=== PATIENT | male | born 1945 | race Caucasian/White ===

== ENCOUNTER 2021-05-20 16:14 | Emergency (ER) | payer OTHER ==
[~2021-05-20] VITALS: Ht 172.7 cm; Wt 81.7 kg
[2021-05-20 17:16] LABS: BASOPHILS ABSOLUTE AUTO 0.09 K/mm3 (0.00-0.23); BASOPHILS PERCENT AUTO 1 % (0-2); EOSINOPHILS ABSOLUTE AUTO 0.11 K/mm3 (0.00-0.68); EOSINOPHILS PERCENT AUTO 1 % (0-6); Hematocrit 38.3 % (37.0-53.0); Hemoglobin 13.1 g/dL (13.5-17.5); IMMATURE GRAN ABSOLUTE AUTO 0.03 K/mm3 (0.00-0.10); IMMATURE GRAN PERCENT AUTO 0 % (0-1); LYMPHOCYTES ABSOLUTE AUTO 1.28 K/mm3 (0.84-5.20); LYMPHOCYTES PERCENT AUTO 12 % (21-46); MONOCYTES ABSOLUTE AUTO 1.24 K/mm3 (0.16-1.47); MONOCYTES PERCENT AUTO 12 % (4-13); Mean Corpuscular HGB 31.6 pg (26.0-34.0); Mean Corpuscular HGB Conc 34.2 g/dL (31.5-36.5); Mean Corpuscular Volume 93 fL (80-100); Mean Platelet Volume 10.6 fL (9.1-12.4); NEUTROPHILS ABSOLUTE AUTO 7.58 K/mm3 (1.96-9.15); NEUTROPHILS PERCENT AUTO 73 % (41-73); Platelet Count 259 K/mm3 (150-400); RDW Coefficient Variation 13.7 % (11.7-14.2); Red Blood Cell Count 4.14 M/mm3 (4.30-5.90); White Blood Cell Count 10.33 K/mm3 (4.00-11.30)
[2021-05-20 17:37] LABS: Alanine Aminotransfer (ALT/SGP 24 U/L (12-78); Albumin, Blood 3.5 g/dL (3.4-5.0); Alk Phos 87 U/L (50-136); Anion Gap 6 mmol/L (6-16); Aspartate Aminotrans (AST/SGOT 15 U/L (12-37); Blood Urea Nitrogen 9 mg/dL (8-24); Bun/Creatinine Ratio 10.9 (12.0-20.0); CO2, Blood 26 mmol/L (21-32); Calcium, Blood 8.3 mg/dL (8.5-10.1); Chloride, Blood 105 mmol/L (98-108); Creatinine, Blood 0.83 mg/dL (0.60-1.20); Globulin, Blood 3.6 g/dL (2.2-4.0); Glomerular Filtration Rate >60 (60-); Glucose, Blood 94 mg/dL (70-99); Potassium, Blood 3.4 mmol/L (3.5-5.5); Sodium, Blood 137 mmol/L (136-145); Total Protein, Blood 7.1 g/dL (6.4-8.2); Troponin I <0.015 ng/mL (0.000-0.040)
[2021-05-20] MEDS ORDERED: Robaxin750 MG PO ×2 (19:24→19:48)
[2021-05-20] MEDS ORDERED: IBUP600 PO ×2 (19:24→19:48)
[2021-05-20] MEDS ORDERED: AMLOATOR (19:26)
[2021-05-20] MEDS ORDERED: Amlodipine Bes2.5 MG (19:27)
[2021-05-20] MEDS ORDERED: ATOR10 (19:27)
[2021-05-20] MEDS ORDERED: Lisinopril2.5 MG (19:27)
[2021-05-20] MEDS ORDERED: CLOP75 PO (19:28)
[2021-05-20] MEDS ORDERED: Flomax0.4 MG (19:29)
== END 2021-05-20 20:16 | disposition home or self-care (01) ==
LOC: ER 16:14
PROVIDERS: Physician Assistant
DX: M54.2 Cervicalgia (principal); M25.511 Pain in right shoulder; M25.512 Pain in left shoulder; Z88.1 Allergy status to other antibiotic agents; Z87.891 Personal history of nicotine dependence; Z79.899 Other long term (current) drug therapy
CPT/HCPCS: 70498; 71046; 80053; 84484; 85025; 93005; 93010; 96374-59; 96375-59; 99284-25; A9270; J1170; J1885; Q9967

== ENCOUNTER 2024-01-21 11:36 | Emergency (ER) | payer OTHER ==
[~2024-01-21] VITALS: Ht 172.7 cm; Wt 77.1 kg
[~2024-01-21 11:36] MED LIST: ALBU90OI INH; AMLO10 PO; AMLOATOR; ATOR10; ATOR20 PO; Amlodipine Bes2.5 MG; CLOP75 PO; Flomax0.4 MG; IBUP600 PO; LISI20 PO; Lisinopril2.5 MG; Robaxin750 MG PO; TAMS.4ER PO
[2024-01-21 12:09] LABS: BASOPHILS ABSOLUTE AUTO 0.12 K/mm3 (0.00-0.23); BASOPHILS PERCENT AUTO 1 % (0-2); EOSINOPHILS ABSOLUTE AUTO 2.53 K/mm3 (0.00-0.68); EOSINOPHILS PERCENT AUTO 27 % (0-6); Hematocrit 41.4 % (37.0-53.0); Hemoglobin 13.9 g/dL (13.5-17.5); IMMATURE GRAN ABSOLUTE AUTO 0.01 K/mm3 (0.00-0.10); IMMATURE GRAN PERCENT AUTO 0 % (0-1); LYMPHOCYTES ABSOLUTE AUTO 1.63 K/mm3 (0.84-5.20); LYMPHOCYTES PERCENT AUTO 17 % (21-46); MONOCYTES PERCENT AUTO 9 % (4-13); Mean Corpuscular HGB 30.5 pg (26.0-34.0); Mean Corpuscular HGB Conc 33.6 g/dL (31.5-36.5); Mean Corpuscular Volume 91 fL (80-100); NEUTROPHILS ABSOLUTE AUTO 4.37 K/mm3 (1.96-9.15); NEUTROPHILS PERCENT AUTO 46 % (41-73); Platelet Count 311 K/mm3 (150-400); RDW Coefficient Variation 13.9 % (11.7-14.2); Red Blood Cell Count 4.56 M/mm3 (4.30-5.90); White Blood Cell Count 9.46 K/mm3 (4.00-11.30)
[2024-01-21 12:32] LABS: Albumin, Blood 3.5 g/dL (3.4-5.0); Bilirubin, Total 0.6 mg/dL (0.1-1.0); Bun/Creatinine Ratio 17.5 (12.0-20.0); Calcium, Blood 9.2 mg/dL (8.5-10.1); Creatinine, Blood 0.8 mg/dL (0.60-1.20); Globulin, Blood 3.5 g/dL (2.2-4.0); Potassium, Blood 4.2 mmol/L (3.5-5.5)
[2024-01-21 12:41] LABS: BAND PERCENT MAN 1 % (0-8); BASOPHILS PERCENT MAN 0 % (0-2); EOSINOPHILS PERCENT MAN 18 % (0-6); LYMPHOCYTES % ATYPICAL MANUAL 1 % (0-0); LYMPHOCYTES ABSOLUTE MAN 2.08 K/mm3 (0.84-5.20); LYMPHOCYTES PERCENT MAN 21 % (21-46); MONOCYTES ABSOLUTE MAN 0.94 K/mm3 (0.16-1.47); MONOCYTES PERCENT MAN 10 % (4-13); NEUTROPHILS ABSOLUTE MAN 4.73 K/mm3 (1.96-9.15); SEG NEUTROPHILS PERCENT MAN 49 % (41-73); TOTAL CELLS COUNTED 100
[2024-01-21 13:15] LABS: Source, Urine Clean Catch
[2024-01-21 13:19] LABS: Appearance, Urine Clear (Clear); Bilirubin, Urine Neg (Neg); Blood, Urine Neg (Neg); Color, Urine Yellow (P-Yellow); Glucose Qualitative, Urine Neg (Neg); Ketones, Urine Neg (Neg); Leukocyte Esterase, Urine Neg (Neg); Nitrite, Urine Neg (Neg); Protein, Urine Neg (Neg); Urobilinogen, Urine NORM (Normal)
[2024-01-21 16:00] VITALS: BP 146/67
== END 2024-01-21 16:34 | disposition home or self-care (01) ==
LOC: ER 11:36
PROVIDERS: Student in an Organized Health Care Education/Training Program
DX: K40.90 Unilateral inguinal hernia, without obstruction or gangrene, not specified as recurrent (principal); K57.32 Diverticulitis of large intestine without perforation or abscess without bleeding; Z88.1 Allergy status to other antibiotic agents; Z88.8 Allergy status to other drugs, medicaments and biological substances; Z79.899 Other long term (current) drug therapy; Z87.891 Personal history of nicotine dependence
CPT/HCPCS: 71046; 74177; 80053; 81003; 83690; 83880; 85025; 93971; Q9967

== ENCOUNTER 2024-02-29 20:24 | Emergency (ER) | payer OTHER ==
[~2024-02-29] VITALS: Ht 172.7 cm; Wt 73.5 kg
[2024-02-29 20:30] VITALS: BP 134/87
[2024-02-29 20:58] LABS: BASOPHILS ABSOLUTE AUTO 0.04 K/mm3 (0.00-0.23); BASOPHILS PERCENT AUTO 1 % (0-2); EOSINOPHILS ABSOLUTE AUTO 1.86 K/mm3 (0.00-0.68); EOSINOPHILS PERCENT AUTO 22 % (0-6); Hematocrit 45.3 % (37.0-53.0); Hemoglobin 15.2 g/dL (13.5-17.5); IMMATURE GRAN ABSOLUTE AUTO 0.04 K/mm3 (0.00-0.10); IMMATURE GRAN PERCENT AUTO 1 % (0-1); LYMPHOCYTES ABSOLUTE AUTO 1.31 K/mm3 (0.84-5.20); LYMPHOCYTES PERCENT AUTO 16 % (21-46); MONOCYTES ABSOLUTE AUTO 0.45 K/mm3 (0.16-1.47); MONOCYTES PERCENT AUTO 5 % (4-13); Mean Corpuscular HGB 30.3 pg (26.0-34.0); Mean Corpuscular HGB Conc 33.6 g/dL (31.5-36.5); Mean Corpuscular Volume 90 fL (80-100); Mean Platelet Volume 10.3 fL (9.1-12.4); NEUTROPHILS ABSOLUTE AUTO 4.64 K/mm3 (1.96-9.15); NEUTROPHILS PERCENT AUTO 56 % (41-73); Platelet Count 324 K/mm3 (150-400); RDW Coefficient Variation 14.4 % (11.7-14.2); RDW Standard Deviation 47.9 fL (35.1-46.3); Red Blood Cell Count 5.02 M/mm3 (4.30-5.90); White Blood Cell Count 8.34 K/mm3 (4.00-11.30)
[2024-02-29 21:21] LABS: Albumin, Blood 3.6 g/dL (3.4-5.0); Albumin/Globulin Ratio 1.1 (0.8-1.8); Bilirubin, Total 0.6 mg/dL (0.1-1.0); Bun/Creatinine Ratio 20.8 (12.0-20.0); Calcium, Blood 9.2 mg/dL (8.5-10.1); Creatinine, Blood 0.82 mg/dL (0.60-1.20); Globulin, Blood 3.4 g/dL (2.2-4.0); Potassium, Blood 3.9 mmol/L (3.5-5.5)
== END 2024-02-29 22:04 | disposition left against medical advice (07) ==
LOC: ER 20:24
PROVIDERS: Emergency Medicine
DX: R03.1 Nonspecific low blood-pressure reading (principal); R53.1 Weakness; Z53.21 Procedure and treatment not carried out due to patient leaving prior to being seen by health care provider
CPT/HCPCS: 71046; 80053; 83880; 84484; 85025; 93005; 93010

== ENCOUNTER 2024-03-13 12:20 | Observation (INO) | payer OTHER ==
[~2024-03-13] VITALS: Ht 172.7 cm; Wt 74.8 kg
[2024-03-13 13:12] LABS: BASOPHILS ABSOLUTE AUTO 0.14 K/mm3 (0.00-0.23); BASOPHILS PERCENT AUTO 2 % (0-2); EOSINOPHILS ABSOLUTE AUTO 2.18 K/mm3 (0.00-0.68); EOSINOPHILS PERCENT AUTO 24 % (0-6); Hematocrit 42.8 % (37.0-53.0); Hemoglobin 14.5 g/dL (13.5-17.5); IMMATURE GRAN ABSOLUTE AUTO 0.02 K/mm3 (0.00-0.10); IMMATURE GRAN PERCENT AUTO 0 % (0-1); LYMPHOCYTES PERCENT AUTO 24 % (21-46); MONOCYTES ABSOLUTE AUTO 0.84 K/mm3 (0.16-1.47); MONOCYTES PERCENT AUTO 9 % (4-13); Mean Corpuscular HGB 30.3 pg (26.0-34.0); Mean Corpuscular HGB Conc 33.9 g/dL (31.5-36.5); Mean Corpuscular Volume 89 fL (80-100); Mean Platelet Volume 10.5 fL (9.1-12.4); NEUTROPHILS ABSOLUTE AUTO 3.67 K/mm3 (1.96-9.15); NEUTROPHILS PERCENT AUTO 41 % (41-73); Platelet Count 287 K/mm3 (150-400); RDW Coefficient Variation 14.4 % (11.7-14.2); RDW Standard Deviation 47.2 fL (35.1-46.3); Red Blood Cell Count 4.79 M/mm3 (4.30-5.90); White Blood Cell Count 8.95 K/mm3 (4.00-11.30)
[2024-03-13 13:32] LABS: Albumin, Blood 3.8 g/dL (3.4-5.0); Bilirubin, Total 0.6 mg/dL (0.1-1.0); Bun/Creatinine Ratio 15.1 (12.0-20.0); Calcium, Blood 8.9 mg/dL (8.5-10.1); Creatinine, Blood 0.8 mg/dL (0.60-1.20); Globulin, Blood 3.7 g/dL (2.2-4.0); Total Protein, Blood 7.5 g/dL (6.4-8.2)
[2024-03-13 14:12] LABS: Source, Urine Clean Catch
[2024-03-13 14:23] LABS: Appearance, Urine Clear (Clear); Bilirubin, Urine Neg (Neg); Blood, Urine Neg (Neg); Color, Urine Yellow (P-Yellow); Glucose Qualitative, Urine Neg (Neg); Ketones, Urine Neg (Neg); Leukocyte Esterase, Urine Neg (Neg); Nitrite, Urine Neg (Neg); Protein, Urine Neg (Neg); Specific Gravity, Urine 1.015 (1.003-1.022); Urobilinogen, Urine NORM (Normal)
[2024-03-13] MEDS ORDERED: Magnesium Hydroxide Conc 10 ML UDC PO PRN (17:05)
[2024-03-13] MEDS ORDERED: Ipratropium/Albuterol SulF 2.5-0.5MG/3 ML Amp INH SCH (17:05)
[2024-03-13] MEDS ORDERED: Acetaminophen 325 MG TABLET PO PRN (17:05)
[2024-03-13] MEDS ORDERED: Furosemide 10 MG / ML 2ML Vial IV SCH (18:00)
[2024-03-13] MEDS ORDERED: STIOLTO RESPIMAT4 G1 INH (18:39)
[2024-03-13 19:06] VITALS: BP 129/83
--- NOTE | 2024-03-13 20:16 | NUR ---
ADMIT NOTE- PT ARRIVED TO THE ROOM AT 1845. SHIFT CHANGE IN PROGRESS. PT ALERT, ORIENTED AND IND/1PA WITH AMBULATION. REPORT PASSED ON TO NIGHT RN CHARLOTTE, 2 RN SKIN CHECK COMPLETED WITH HER AT THE TIME OF BEDSIDE REPORT.
--- NOTE | 2024-03-14 05:12 | NUR ---
PATIENT IS A&OX4, VITALS ARE STABLE, ON ROOM AIR, ON TELE RUNNING SINUS GIRMA AT 50 and had a one first degree heart block. patient denied any pain. PATIENT HAS 2 PLUS EDEMA TO BILATERAL LOWER EXTREMITIES, SKIN INTACT.
[2024-03-14 05:34] VITALS: BP 116/45
[2024-03-14 06:32] LABS: Alanine Aminotransfer (ALT/SGP 35 U/L (12-78); Albumin, Blood 3.2 g/dL (3.4-5.0); Alk Phos 87 U/L (50-136); Anion Gap 9 mmol/L (3-11); Aspartate Aminotrans (AST/SGOT 27 U/L (12-37); Bilirubin, Total 0.5 mg/dL (0.1-1.0); Blood Urea Nitrogen 12 mg/dL (8-24); Bun/Creatinine Ratio 16.8 (12.0-20.0); CO2, Blood 28 mmol/L (21-32); Calcium, Blood 8.7 mg/dL (8.5-10.1); Chloride, Blood 106 mmol/L (98-108); Creatinine, Blood 0.72 mg/dL (0.60-1.20); Globulin, Blood 3.2 g/dL (2.2-4.0); Glomerular Filtration Rate 93 (60-); Glucose, Blood 92 mg/dL (70-99); Potassium, Blood 3.5 mmol/L (3.5-5.5); Sodium, Blood 139 mmol/L (136-145); Total Protein, Blood 6.4 g/dL (6.4-8.2)
[2024-03-14 08:08] VITALS: BP 134/73
[2024-03-14] MEDS ORDERED: Potassium Chloride 20 MEQ TabCR PO SCH (09:00)
[2024-03-14] MEDS ORDERED: Enoxaparin 40 MG/0.4 ML SYR SC SCH (09:00)
[2024-03-14] MEDS ORDERED: AmLODIPine Besylate 5 MG Tab PO SCH (09:00)
[2024-03-14] MEDS ORDERED: Tamsulosin HCl 0.4 MG Cap PO SCH (09:00)
[2024-03-14] MEDS ORDERED: Atorvastatin 10 MG Tab PO SCH (09:00)
[2024-03-14] MEDS ORDERED: Lisinopril 20 MG Tab PO SCH (09:00)
[2024-03-14] MEDS ORDERED: Clopidogrel Bisulfate 75 MG Tab PO SCH (09:00)
[2024-03-14 15:20] VITALS: BP 125/59
[2024-03-14] MEDS ORDERED: Furosemide 10 MG/ML 4ML Vial IV SCH (18:00)
--- NOTE | 2024-03-14 18:22 | NUR ---
SHIFT SUMMARY PT NOTED TO BE SINUS GIRMA AND DROP INTO THE LOW 40S THIS SHIFT. PT WORKED WITH THERAPY THIS SHIFT. THERAPY STATED PT IS OKAY TO BE A SBA.
[2024-03-14 20:27] VITALS: BP 116/56
[2024-03-15 04:24] VITALS: BP 111/64
--- NOTE | 2024-03-15 04:50 | NUR ---
SUMMARY- NO NEW ISSUES NOTED. PT VOIDING WELL. PT HAS BEEN RESTING COMFORTABLY THROUGHOUT SHIFT. I&O'S CHARTED ORDERED. CALL LIGHT IN REACH.
[2024-03-15 05:15] LABS: BASOPHILS ABSOLUTE AUTO 0.14 K/mm3 (0.00-0.23); BASOPHILS PERCENT AUTO 2 % (0-2); EOSINOPHILS ABSOLUTE AUTO 2.84 K/mm3 (0.00-0.68); EOSINOPHILS PERCENT AUTO 31 % (0-6); Hematocrit 41.3 % (37.0-53.0); Hemoglobin 13.5 g/dL (13.5-17.5); IMMATURE GRAN ABSOLUTE AUTO 0.01 K/mm3 (0.00-0.10); IMMATURE GRAN PERCENT AUTO 0 % (0-1); LYMPHOCYTES ABSOLUTE AUTO 2.11 K/mm3 (0.84-5.20); LYMPHOCYTES PERCENT AUTO 23 % (21-46); MONOCYTES ABSOLUTE AUTO 0.76 K/mm3 (0.16-1.47); MONOCYTES PERCENT AUTO 8 % (4-13); Mean Corpuscular HGB 29.5 pg (26.0-34.0); Mean Corpuscular HGB Conc 32.7 g/dL (31.5-36.5); Mean Corpuscular Volume 90 fL (80-100); Mean Platelet Volume 10.3 fL (9.1-12.4); NEUTROPHILS ABSOLUTE AUTO 3.42 K/mm3 (1.96-9.15); NEUTROPHILS PERCENT AUTO 37 % (41-73); Platelet Count 274 K/mm3 (150-400); RDW Coefficient Variation 14.2 % (11.7-14.2); RDW Standard Deviation 47.4 fL (35.1-46.3); Red Blood Cell Count 4.57 M/mm3 (4.30-5.90); White Blood Cell Count 9.28 K/mm3 (4.00-11.30)
[2024-03-15 05:43] LABS: Calcium, Blood 8.4 mg/dL (8.5-10.1); Creatinine, Blood 0.71 mg/dL (0.60-1.20); Potassium, Blood 3.5 mmol/L (3.5-5.5)
[2024-03-15] MEDS ORDERED: Potassium Chloride 20 MEQ TabCR PO ONE (13:00)
[2024-03-15] MEDS ORDERED: FURO20 PO (13:39)
--- NOTE | 2024-03-15 15:51 | NUR ---
DISCHARGE SUMMARY Patient alert & oriented x4. Denies pain or discomfort. Ready for discharge. Plan to DC with new orders for Lasix. Provided discharge teaching, pt verbalized understanding. Left medical unit at 1545.
== END 2024-03-15 15:53 | disposition home or self-care (01) ==
LOC: ER 12:20 → MEDS 12:21 → ER 16:59 → MEDS 16:59 → ENPENDDIS 03-15 13:42 → MEDS 03-15 15:53
PROVIDERS: Physician Assistant; Student in an Organized Health Care Education/Training Program; ADMIT Internal Medicine
DX: I11.0 Hypertensive heart disease with heart failure (principal); I50.33 Acute on chronic diastolic (congestive) heart failure; J44.9 Chronic obstructive pulmonary disease, unspecified; N40.0 Benign prostatic hyperplasia without lower urinary tract symptoms; Z86.73 Personal history of transient ischemic attack (TIA), and cerebral infarction without residual deficits; Z88.1 Allergy status to other antibiotic agents; Z88.8 Allergy status to other drugs, medicaments and biological substances; Z79.02 Long term (current) use of antithrombotics/antiplatelets; Z79.899 Other long term (current) drug therapy
CPT/HCPCS: 36415; 71046; 71260; 80048; 80053; 81003; 82550; 83690; 83880; 84443; 84484; 85025; 93005; 93010; 94640; 94664; 94760; 96372; 96374; 96376; 97116; 97162; 97530; 99285-25; A9270; G0103; G0378; J1650; J1940; Q9967

== ENCOUNTER 2024-05-12 11:46 | Emergency (ER) | payer OTHER ==
[~2024-05-12] VITALS: Ht 172.7 cm; Wt 64.4 kg
[~2024-05-12 11:46] MED LIST changes: +FURO20 PO; +STIOLTO RESPIMAT4 G1 INH
[2024-05-12 12:12] LABS: BASOPHILS PERCENT AUTO 1 % (0-2); EOSINOPHILS PERCENT AUTO 19 % (0-6); Hematocrit 45.1 % (37.0-53.0); Hemoglobin 14.9 g/dL (13.5-17.5); IMMATURE GRAN ABSOLUTE AUTO 0.01 K/mm3 (0.00-0.10); IMMATURE GRAN PERCENT AUTO 0 % (0-1); LYMPHOCYTES ABSOLUTE AUTO 2.11 K/mm3 (0.84-5.20); LYMPHOCYTES PERCENT AUTO 24 % (21-46); MONOCYTES ABSOLUTE AUTO 0.66 K/mm3 (0.16-1.47); MONOCYTES PERCENT AUTO 7 % (4-13); Mean Corpuscular HGB 29.2 pg (26.0-34.0); Mean Corpuscular Volume 88 fL (80-100); Mean Platelet Volume 10.9 fL (9.1-12.4); NEUTROPHILS ABSOLUTE AUTO 4.33 K/mm3 (1.96-9.15); NEUTROPHILS PERCENT AUTO 49 % (41-73); Platelet Count 306 K/mm3 (150-400); RDW Coefficient Variation 13.9 % (11.7-14.2); RDW Standard Deviation 45.4 fL (35.1-46.3); Red Blood Cell Count 5.11 M/mm3 (4.30-5.90); White Blood Cell Count 8.91 K/mm3 (4.00-11.30)
[2024-05-12 12:30] LABS: Albumin, Blood 3.7 g/dL (3.4-5.0); Bilirubin, Total 0.6 mg/dL (0.1-1.0); Bun/Creatinine Ratio 18.6 (12.0-20.0); Calcium, Blood 9.6 mg/dL (8.5-10.1); Creatinine, Blood 0.75 mg/dL (0.60-1.20); Globulin, Blood 3.8 g/dL (2.2-4.0); Potassium, Blood 4.1 mmol/L (3.5-5.5); Total Protein, Blood 7.5 g/dL (6.4-8.2)
[2024-05-12] MEDS ORDERED: POTA10T PO (13:49)
[2024-05-12 15:30] VITALS: BP 131/72
== END 2024-05-12 15:50 | disposition home or self-care (01) ==
LOC: ER 11:46
PROVIDERS: Physician Assistant
DX: R13.10 Dysphagia, unspecified (principal); Z88.1 Allergy status to other antibiotic agents; Z88.8 Allergy status to other drugs, medicaments and biological substances; Z79.899 Other long term (current) drug therapy; J44.9 Chronic obstructive pulmonary disease, unspecified; I11.0 Hypertensive heart disease with heart failure; I50.9 Heart failure, unspecified; E78.00 Pure hypercholesterolemia, unspecified; Z87.891 Personal history of nicotine dependence
CPT/HCPCS: 70450; 70491; 71046; 80053; 85025; 99284-25; Q9967

== ENCOUNTER 2024-05-20 11:43 | Inpatient (IN) | payer OTHER ==
[~2024-05-20] VITALS: Ht 172.7 cm; Wt 62.9 kg
[~2024-05-20 11:43] MED LIST changes: +POTA10T PO
[2024-05-20 12:52] LABS: BASOPHILS ABSOLUTE AUTO 0.11 K/mm3 (0.00-0.23); BASOPHILS PERCENT AUTO 1 % (0-2); EOSINOPHILS ABSOLUTE AUTO 1.24 K/mm3 (0.00-0.68); EOSINOPHILS PERCENT AUTO 14 % (0-6); Hematocrit 47.3 % (37.0-53.0); IMMATURE GRAN ABSOLUTE AUTO 0.02 K/mm3 (0.00-0.10); IMMATURE GRAN PERCENT AUTO 0 % (0-1); LYMPHOCYTES PERCENT AUTO 22 % (21-46); MONOCYTES ABSOLUTE AUTO 0.79 K/mm3 (0.16-1.47); MONOCYTES PERCENT AUTO 9 % (4-13); Mean Corpuscular HGB 29.5 pg (26.0-34.0); Mean Corpuscular HGB Conc 33.8 g/dL (31.5-36.5); Mean Corpuscular Volume 87 fL (80-100); Mean Platelet Volume 10.7 fL (9.1-12.4); NEUTROPHILS ABSOLUTE AUTO 4.99 K/mm3 (1.96-9.15); NEUTROPHILS PERCENT AUTO 55 % (41-73); Platelet Count 306 K/mm3 (150-400); RDW Coefficient Variation 13.8 % (11.7-14.2); RDW Standard Deviation 43.8 fL (35.1-46.3); Red Blood Cell Count 5.43 M/mm3 (4.30-5.90); White Blood Cell Count 9.15 K/mm3 (4.00-11.30)
[2024-05-20 13:10] LABS: Bilirubin, Total 0.5 mg/dL (0.1-1.0); Bun/Creatinine Ratio 17.8 (12.0-20.0); Calcium, Blood 9.8 mg/dL (8.5-10.1); Creatinine, Blood 0.67 mg/dL (0.60-1.20); Globulin, Blood 4.1 g/dL (2.2-4.0); Potassium, Blood 4.3 mmol/L (3.5-5.5); Total Protein, Blood 8.1 g/dL (6.4-8.2)
[2024-05-20 14:41] LABS: Source, Urine Clean Catch
[2024-05-20 14:43] LABS: Appearance, Urine Clear (Clear); Bilirubin, Urine Neg (Neg); Blood, Urine Neg (Neg); Color, Urine Yellow (P-Yellow); Glucose Qualitative, Urine Neg (Neg); Ketones, Urine 1+ (Neg); Leukocyte Esterase, Urine Neg (Neg); Nitrite, Urine Neg (Neg); Protein, Urine Neg (Neg); Urobilinogen, Urine NORM (Normal)
[2024-05-20] MEDS ORDERED: Ondansetron HCl 2 MG / ML 2ML Vial IV PRN (15:45)
[2024-05-20 17:35] VITALS: BP 145/96
[2024-05-20] MEDS ORDERED: Ipratropium/Albuterol SulF 2.5-0.5MG/3 ML Amp INH PRN (17:50)
[2024-05-20] MEDS ORDERED: Albuterol HFA200 ACT/6.7 GM INH INH PRN (18:10)
--- NOTE | 2024-05-20 18:31 | NUR ---
PATEINT ADMITTED TO THE FLOOR FROM HOME, LIVES WITH AT HOME, HAS BECOME WEAK, DYSPHAGIA, POOR SWALLOW, LOST 10 POUNDS, ALERT AND ORIENTED TO ALL, SLOW TO RESPOND, PT/ST AND A MRI ORDERED FOR TOMORROW. FAMILY HELPFUL WITH CARE AND ADMISSION. CONTINENT WITH BSU, CLEAR LIQUIDS DIET, CONSULT FOR DR CASTLE CALLED IN, CALL LIGHT WITH IN REACH, CLEARLY MAKES NEEDS KNOWN, WILL RELAY TO PM RN
[2024-05-20 19:52] VITALS: BP 133/74
[2024-05-20] MEDS ORDERED: Clopidogrel Bisulfate 75 MG Tab PO SCH (21:00)
[2024-05-20] MEDS ORDERED: AmLODIPine Besylate 5 MG Tab PO SCH (21:00)
[2024-05-20] MEDS ORDERED: Atorvastatin 10 MG Tab PO SCH (21:00)
[2024-05-20] MEDS ORDERED: Lisinopril 20 MG Tab PO SCH (21:00)
[2024-05-20] MEDS ORDERED: Tamsulosin HCl 0.4 MG Cap PO SCH (21:00)
[2024-05-21 02:39] VITALS: BP 115/62
--- NOTE | 2024-05-21 03:33 | NUR ---
SUMMARY: PT IS A/OX4, CALLS APPROPRIATELY TO SPECIFY NEEDS AND IS PLEASANT AND COOPERATIVE W/CARE. SPEECH IS SLIGHLTY GARBLED AND SLOW BUT PT ENDORSES THIS IS BASELINE. HE'S ADMITTED W/FTT, DYSPHAGIA AND WT.LOSS D/T DIFFICULTY SWALLOWING DESPITE RECENT PUREE DIET MODIFICATIONS. HE USES CANE AT BASELINE AND IS SBA OOB. SPEECH TX AND PHYS TX FOLLOWING HIM. HE TOLERATED PILLS CRUSHED IN APPLESAUCE AND CLEAR LIQS UNTIL BEING MADE NPO AT [place] FOR FOR SURGICAL CONSULT AND POSSIBLE EGD. HEAD MRI IS ALSO SCHEDULED THIS AM. NO ACUTE CHANGES, VSS/AFEBRILE. WCTM AND REPORT TO DAY RN.
[2024-05-21 07:25] VITALS: BP 135/78
[2024-05-21] MEDS ORDERED: Heparin Sodium,Porcine 5,000 UNIT/0.5 ML SDV SC SCH (09:00)
[2024-05-21] MEDS ORDERED: Misc. Inhaler INH SCH (09:00)
[2024-05-21] MEDS ORDERED: Furosemide 40 MG Tab PO SCH (09:00)
[2024-05-21] MEDS ORDERED: Potassium Chloride 10 Meq Tablet SA PO SCH (09:00)
[2024-05-21] MEDS ORDERED: Lisinopril 20 MG Tab PO SCH (09:00)
[2024-05-21] MEDS ORDERED: Clopidogrel Bisulfate 75 MG Tab PO SCH (09:00)
[2024-05-21] MEDS ORDERED: AmLODIPine Besylate 5 MG Tab PO SCH (09:00)
[2024-05-21] MEDS ORDERED: Potassium Chloride 20 MEQ TabCR PO SCH (09:19)
[2024-05-21 16:14] VITALS: BP 115/65
--- NOTE | 2024-05-21 18:42 | NUR ---
NO ACUTE CHANGES, EGD AND SCOPE TO BE DONE ON TUESDAY WITH DR CASTLE, MRI CANCELLED DUE TO STENT PRODUCT IN PATIENT, BARRIUM SWALLOW DONE TODAY, ST AND PT KELLY, FWW WITH GAIT BELT STAND BY ASSIST. SLOWLY MAKES NEEDS KNOWN WITH SPEECH DEFICIT. DIET CHANGED TO PUREE PER PATIENT REQUESTED, PATIENT WAS NOT ABLE TO MANAGE MINCED FOODS. DAUGHTER IN LAW ARSALAN AND SON YAW VERY HELPFUL WITH CARE, STILETO INHALER SENT TO PHARMACY FOR VERIFICATION TO DISPENSE TO PATIENT. 95% ON RA, ALERT AND ORIENTED TO ALL, CALL LIGHT WITH IN REACH, WILL RELAY TO PM RN
[2024-05-21 19:31] VITALS: BP 136/67
--- NOTE | 2024-05-22 04:11 | NUR ---
SUMMARY: PT IS A/OX4, CALLS APPROPRIATELY TO SPECIFY NEEDS AND IS PLEASANT AND COOPERATIVE W/CARE. SPEECH IS SLOW AND SLIGHLTY GARBLED AND HE ENDORSES THIS DEVELOPED AND PROGRESSIVELY WORSENED SINCE DECEMBER 2023. PT IS TOLERATING NEW PUREE DIET, THIN LIQ'S W/O STRAW AND REQ'S MEDS CRUSHED IN APPLESAUCE. CX'D TODAY AND INTENDS TO PERFORM EGD ON Tuesday05/23/24. HE'S HERE W/DYSPHAGIA AND ASSOCIATED WT.LOSS, FTT AND WEAKNESS. PT USES CANE NOW AT BASELINE AND IS SBA OOB. PHYS TX INSTRUCTED STAFF TO AMBULATE PT QID W/FWW AND GB. NO ACUTE CHANGES, VSS AND AFEBRILE. WCTM AND REPORT TO DAY RN.
[2024-05-22 05:01] LABS: BASOPHILS PERCENT AUTO 1 % (0-2); EOSINOPHILS ABSOLUTE AUTO 1.82 K/mm3 (0.00-0.68); EOSINOPHILS PERCENT AUTO 22 % (0-6); Hematocrit 41.9 % (37.0-53.0); IMMATURE GRAN ABSOLUTE AUTO 0.01 K/mm3 (0.00-0.10); IMMATURE GRAN PERCENT AUTO 0 % (0-1); LYMPHOCYTES ABSOLUTE AUTO 2.31 K/mm3 (0.84-5.20); LYMPHOCYTES PERCENT AUTO 28 % (21-46); MONOCYTES ABSOLUTE AUTO 0.72 K/mm3 (0.16-1.47); MONOCYTES PERCENT AUTO 9 % (4-13); Mean Corpuscular HGB 29.1 pg (26.0-34.0); Mean Corpuscular HGB Conc 33.4 g/dL (31.5-36.5); Mean Corpuscular Volume 87 fL (80-100); Mean Platelet Volume 10.8 fL (9.1-12.4); NEUTROPHILS ABSOLUTE AUTO 3.31 K/mm3 (1.96-9.15); NEUTROPHILS PERCENT AUTO 40 % (41-73); Platelet Count 285 K/mm3 (150-400); RDW Coefficient Variation 13.8 % (11.7-14.2); Red Blood Cell Count 4.81 M/mm3 (4.30-5.90); White Blood Cell Count 8.27 K/mm3 (4.00-11.30)
[2024-05-22 05:03] VITALS: BP 114/67
[2024-05-22 07:29] VITALS: BP 138/67
[2024-05-22 07:56] LABS: Albumin, Blood 3.1 g/dL (3.4-5.0); Bilirubin, Total 0.5 mg/dL (0.1-1.0); Bun/Creatinine Ratio 14.8 (12.0-20.0); Calcium, Blood 9.2 mg/dL (8.5-10.1); Creatinine, Blood 0.61 mg/dL (0.60-1.20); Globulin, Blood 3.2 g/dL (2.2-4.0); Magnesium, Blood 2.3 mg/dL (1.6-2.4); Phosphorus, Blood 3.4 mg/dL (2.5-4.9); Potassium, Blood 3.8 mmol/L (3.5-5.5); Thyroid Stimulating Hormone 0.47 uIU/mL (0.360-4.800); Total Protein, Blood 6.3 g/dL (6.4-8.2)
[2024-05-22] MEDS ORDERED: Misc. Inhaler INH SCH ×2 (09:00→10:30)
--- NOTE | 2024-05-22 15:58 | NUR ---
Upon receiving a referral for spiritual care, I visited the patient. He tells me about the his medical complications and the mystery surrounding his diagnosis. He talks at length about his , who is 6 yrs deep into [facility] and does not even know his name. The patient is her main caregiver and has had to have professional caregivers stay with her while he is in the hospital. His son and the son's leave on the property and come over when they can but they work maritime officer. 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 I explore his methodist beliefs and find that his Rastafarian matt is very important to him and it is where he leans for strength and encouragement. I then provided prayer and the patient showed signs of an increase in peace because of it. I will continue to remain available to the patient and family.
[2024-05-22 16:18] VITALS: BP 113/68
--- NOTE | 2024-05-22 16:18 | NUR ---
SHIFT SUMMARY PT A&OX4, COOPERATIVE, FLAT AFFECT. DENIES ANY PAIN, CP/PRESSURE, HEADACHE, DIZZINESS, OR SOB. LUNGS DIMIISHED T/O. NO ACUTE EVENTS THIS SHIFT. PT SELF AMBULATED TO BATHROOM WITH FWW. CURRENTLY PUREED DIET, BUT CLEAR LIQUIDS FOR TONIGHT TO PREP FOR EGD TOMORROW. NPO AT 0800 ON 05/23/24. PILLS CRUSHED IN APPLESAUCE. CURRENTLY WATCHING TV IN BED. BED IN THE LOWEST POSITION. CALL LIGHT WITHIN REACH.
[2024-05-22] MEDS ORDERED: Sodium, Potassium,Mag Sulfates 354 ML PO ONE (18:25)
[2024-05-22 20:21] VITALS: BP 133/78
[2024-05-23] VITALS (9 sets, daily range): BP systolic 125–152; BP diastolic 58–88
[2024-05-23 04:52] LABS: Hematocrit 42.5 % (37.0-53.0); Hemoglobin 14.1 g/dL (13.5-17.5)
[2024-05-23 05:13] LABS: Bun/Creatinine Ratio 22.9 (12.0-20.0); Calcium, Blood 9.6 mg/dL (8.5-10.1); Creatinine, Blood 0.66 mg/dL (0.60-1.20); Potassium, Blood 3.8 mmol/L (3.5-5.5)
--- NOTE | 2024-05-23 06:30 | NUR ---
NO ACUTE CHANGES,PT SLEPT THROUGHOUT SHIFT - WAKING TO USE BATHROOM MULTIPLE TIMES. PT WAS ABLE TO DRINK MOST OF HIS FIRST DOSE OF BOWEL PREP BUT STOPPED DUE TO NOT BEING ABLE TO TOLERATE FURTHER INTAKE - PT ATTRIBUTES TO DYSPHAGIA. EGD AND COLONOSCOPY PLANNED 05/23.
--- NOTE | 2024-05-23 12:37 | NUR ---
NOTE: PATIENT LEFT THE ROOM AT 1235 VIA GURNEY TO DAY SURGERY.
[2024-05-23] MEDS ORDERED: Lactated Ringer's 1,000 ML IV SCH (12:40)
--- NOTE | 2024-05-23 13:05 | NUR ---
05/23/24 1308 Tera Flaherty History, Chart, Medications and Allergies reviewed before start of procedure.MONITOR INTACT WITH CONTINUOUS PULSE OXIMETRY, CONTINUOUS END TITAL CO2, AND INTERMITTENT BLOOD PRESSURE.3-LEAD EKG REVIEWED WITH PHYSICIAN PRIOR TO START OF PROCEDURE.O2 VIA POM INTACT THROUGHOUT SEDATION/PROCEDURE.See Anesthesia record.
[2024-05-23] MEDS ORDERED: propofoL 20 ML IV ONE (13:07)
[2024-05-23] MEDS ORDERED: Lidocaine HCl 4% 5 ML SDA ONE (13:07)
--- NOTE | 2024-05-23 14:12 | NUR ---
NOTE: PATIENT ARRIVES TO ROOM AT 1405 FROM RECOVERY (EGD DONE BY DR. CASTLE). PATIENT TRANSFERRED TO BED c 1 ASSIST. PATIENT REPORTS SOB, ON RA SATTING 83%. PATIENT PLACED ON 4L O2 SATTING 90-91%, POST-OP VITALS TAKEN. LUNGS CLEAR/DIM T/O TO AUSCULTATION, AND WEAK COUGH. PATIENT RESTING IN BED c HOB ELEVATED AT 45 DEGREES. PATIENT DAUGHTER INLAW AT BEDSIDE. WCTM. CALL LIGHT IN REACH.
[2024-05-23] MEDS ORDERED: Etomidate 2MG / ML 10ML Vial IV ONE (17:36)
--- NOTE | 2024-05-23 18:20 | NUR ---
SHIFT SUMMARY: PATIENT A/OX4, PLEASANT AND COOPERATIVE c CARE. PATIENT HAD HIS EGD DONE BY DR. CASTLE THIS PM. POST-OP VITALS TAKEN, WNL. PATIENT CURRENTLY ON RA, SATTING 93-96%. PATIENT HAS WET AND VERY WEAK COUGH. PATIENT ON MINCED AND MOIST DIET FOR DINNER AND REPORTS CHOKING ON GROUND MEAT, BUT ABLE TO COUGH IT OUT. FAMILY AT BEDSIDE WHEN THIS EVENT HAPPENED AND REPORTED TO THIS RN. ORAL CARE DONE, SUCTIONED SET-UP AT BEDSIDE. DIET CHANGED TO PUREED FOR BFREAKFAST TOMORROW. PATIENT NEEDS SUPERVISION WITH ALL MEALS. PATIENT WILL BENEFIT TO HAVE HIS SWALLOW REEVALUATED BY ST. PATIENT IN BED REPOSITIONED TO HIS R SIDE c HOB ELEVATED TO 35 DEGREES. BED ALARM ON FOR SAFETY. CALL LIGHT IN REACH.
--- NOTE | 2024-05-24 00:38 | NUR ---
05/24/24 4115 PT'S MEDS AND ASSESSMENT LATE DUE TO BEING GIVEN 6 PT'S, OUT OF STAFFING COMPLIANCE AND BEING GIVEN 2 ADMITS AT THE SAME TIME, NOT SAFE STAFFING. PT LYING IN BED, DENIES ANY DISCOMFORT AT THIS TIME. DENIES NEED FOR ANYTHING AT THIS TIME. NO APPARENT SIGNS OF DISTRESS. CALL LIGHT IS IN REACH.
--- NOTE | 2024-05-24 01:24 | NUR ---
0000 PT LYING IN BED, EYES CLOSED, APPEARS TO BE RESTING. BREATHING IS EVEN, UNLABORED. NO APPARENT SIGNS OF DISTRESS. CALL LIGHT IS IN REACH.
--- NOTE | 2024-05-24 02:37 | NUR ---
PT LYING IN BED, EYES CLOSED, APPEARS TO BE RESTING. BREATHING IS EVEN, UNLABORED. NO APPARENT SIGNS OF DISTRESS. CALL LIGHT IS IN REACH.
[2024-05-24 03:31] VITALS: BP 97/52
--- NOTE | 2024-05-24 04:44 | NUR ---
PT LYING IN BED, EYES CLOSED, APPEARS TO BE RESTING. WAKES EASILY TO VERBAL STIMULI. NO APPARENT SIGNS OF DISTRESS. CALL LIGHT IS IN REACH.
--- NOTE | 2024-05-24 04:45 | NUR ---
PT IS AAO X 4, ON RA. DENIED ANY DISCOMFORT FOR THIS SHIFT.
[2024-05-24 06:01] LABS: BASOPHILS ABSOLUTE AUTO 0.08 K/mm3 (0.00-0.23); BASOPHILS PERCENT AUTO 1 % (0-2); EOSINOPHILS PERCENT AUTO 2 % (0-6); Hematocrit 38.7 % (37.0-53.0); Hemoglobin 12.8 g/dL (13.5-17.5); IMMATURE GRAN ABSOLUTE AUTO 0.03 K/mm3 (0.00-0.10); IMMATURE GRAN PERCENT AUTO 0 % (0-1); LYMPHOCYTES ABSOLUTE AUTO 1.45 K/mm3 (0.84-5.20); LYMPHOCYTES PERCENT AUTO 11 % (21-46); MONOCYTES ABSOLUTE AUTO 0.89 K/mm3 (0.16-1.47); MONOCYTES PERCENT AUTO 7 % (4-13); Mean Corpuscular HGB 29.2 pg (26.0-34.0); Mean Corpuscular HGB Conc 33.1 g/dL (31.5-36.5); Mean Corpuscular Volume 88 fL (80-100); Mean Platelet Volume 11.2 fL (9.1-12.4); NEUTROPHILS ABSOLUTE AUTO 10.02 K/mm3 (1.96-9.15); NEUTROPHILS PERCENT AUTO 79 % (41-73); Platelet Count 274 K/mm3 (150-400); RDW Standard Deviation 45.1 fL (35.1-46.3); Red Blood Cell Count 4.39 M/mm3 (4.30-5.90); White Blood Cell Count 12.77 K/mm3 (4.00-11.30)
--- NOTE | 2024-05-24 06:06 | NUR ---
PT LYING IN BED, EYES CLOSED, APPEARS TO BE RESTING. BREATHING IS EVEN, UNLABORED. NO APPARENT SIGNS OF DISTRESS. CALL LIGHT IS IN REACH. NO OTHER CHANGES THIS SHIFT.
[2024-05-24 06:25] LABS: Albumin, Blood 3.2 g/dL (3.4-5.0); Albumin/Globulin Ratio 0.9 (0.8-1.8); Bilirubin, Total 0.5 mg/dL (0.1-1.0); Bun/Creatinine Ratio 28.3 (12.0-20.0); Calcium, Blood 9.3 mg/dL (8.5-10.1); Creatinine, Blood 0.57 mg/dL (0.60-1.20); Globulin, Blood 3.4 g/dL (2.2-4.0); Phosphorus, Blood 3.7 mg/dL (2.5-4.9); Potassium, Blood 3.7 mmol/L (3.5-5.5); Total Protein, Blood 6.6 g/dL (6.4-8.2)
[2024-05-24 07:23] VITALS: BP 120/64
[2024-05-24] MEDS ORDERED: NS 1,000 ML IV SCH (11:15)
[2024-05-24 14:56] VITALS: BP 108/62
--- NOTE | 2024-05-24 15:39 | NUR ---
PT LIKES TO BE ADDRESSED "HECTOR". HECTOR IS A/O X4. ABLE TO MAKE NEEDS KNOWN. HIS VOICE IS SOFT AND GRAVELLY. 3-4 WORD DYSPNEA ON ROOM AIR. PT REPORTS HE HAS BEEN PUREEING HIS FOODS FOR THE LAST MONTH D/T DYSPHAGIA. HECTOR STATED, "IT'S EASIER TO EAT". HECTOR HAS HAD RAPID WT LOSS IN THE LAST FEW MONTHS. WT LOSS AND WEEKNESS IS MOST PROMINENT IN THE LAST MONTH. PT'S SON REPORTS LAST FALL, HECTOR WAS MOVING 200 LBS OR GREATER LOGS OF WOOD AND CHOPPING FIREWOOD. THIS JANUARY, HECTOR PLANTED HIS OWN GARDEN AND WAS MANAGING HIS 20 ACRE RANCH. NOW HE IS VERY WEAK AND FATIGUED. PT WOULD LIKE TO PROCEED WITH PEG TUBE FOR ENHANCED NUTRITION WHILE CONTINUING TO SEEK A DIAGNOSIS FOR HIS SUDDEN DECLINE. HECTOR VERBALIZED UNDERSTANDING THE RISKS OF ASPIRATION WITH CURRENT DYSPHAGIA IS NOT LESSENED WITH PEG TUBE PLACEMENT/USE. CODE STATUS REVIEWED. REMAIN A FULL CODE. HIS NUMBER ONE PRIORITY IS "STAYING ALIVE." THERAPUTIC LISTENING PROVIDED. PT AND FAMILY PRESENT. IN THE ROOM DURING THE VISIT TO DISCUSS SURGICAL PLAN. PRIMARY RN UPDATED.
--- NOTE | 2024-05-24 17:40 | NUR ---
SHIFT NOTE: PT A/OX4 ABLE TO USE HIS CALL LIGHT TO MAKE NEEDS KNOWN. VSS T/O DAY. HE IS ON RA WITH NO DISTRESS. HIS FAMILY HAS BEEN AT BEDSIDE T/O DAY AND HAS BEEN UPDATED ON PLAN OF CARE. HE WAS CHANGED FROM THIN LIQUIDS TO THICKENED TODAY DUE TO INCREASED ASPIRATION RISK. FOOD CONTINUES TO BE PUREED AND MEDS CRUSHED IN APPLESAUCE. KIARRAER WAS AT BEDSIDE TODAY TO DISCUSS THE PLACEMENT OF PEG TUBE 05/25. THE PATIENT IS TO BE NPO AT MIDNIGHT FOR PLACEMENT. PT STATES UNDERSTANDING OF RISKS. HE TRANSFERS WITH A CANE AND 1P ASSIST. HE AMBULATED WITH THIS RN THIS AM AND AGAIN WITH THERAPY THIS AFTERNOON. PT DENIES NEEDS AT THIS TIME. WILL CONTINUE TO MONITOR AND REPORT TO ONCOMING RN
[2024-05-24 19:37] VITALS: BP 147/71
[2024-05-25] VITALS (8 sets, daily range): BP systolic 121–140; BP diastolic 58–80
[2024-05-25 04:23] LABS: ANTI-NUCLEAR AB ANA,IGG ELISA None Detected (None Detected)
[2024-05-25 05:10] LABS: BASOPHILS ABSOLUTE AUTO 0.09 K/mm3 (0.00-0.23); BASOPHILS PERCENT AUTO 1 % (0-2); EOSINOPHILS ABSOLUTE AUTO 1.48 K/mm3 (0.00-0.68); EOSINOPHILS PERCENT AUTO 18 % (0-6); Hemoglobin 12.9 g/dL (13.5-17.5); IMMATURE GRAN ABSOLUTE AUTO 0.02 K/mm3 (0.00-0.10); IMMATURE GRAN PERCENT AUTO 0 % (0-1); LYMPHOCYTES ABSOLUTE AUTO 2.09 K/mm3 (0.84-5.20); LYMPHOCYTES PERCENT AUTO 26 % (21-46); MONOCYTES ABSOLUTE AUTO 0.74 K/mm3 (0.16-1.47); MONOCYTES PERCENT AUTO 9 % (4-13); Mean Corpuscular HGB 29.3 pg (26.0-34.0); Mean Corpuscular HGB Conc 33.1 g/dL (31.5-36.5); Mean Corpuscular Volume 88 fL (80-100); NEUTROPHILS ABSOLUTE AUTO 3.61 K/mm3 (1.96-9.15); NEUTROPHILS PERCENT AUTO 45 % (41-73); Platelet Count 250 K/mm3 (150-400); RDW Coefficient Variation 14.2 % (11.7-14.2); RDW Standard Deviation 45.7 fL (35.1-46.3); Red Blood Cell Count 4.41 M/mm3 (4.30-5.90); White Blood Cell Count 8.03 K/mm3 (4.00-11.30)
[2024-05-25 05:34] LABS: Albumin/Globulin Ratio 0.9 (0.8-1.8); Bilirubin, Total 0.5 mg/dL (0.1-1.0); Bun/Creatinine Ratio 27.9 (12.0-20.0); Calcium, Blood 8.6 mg/dL (8.5-10.1); Creatinine, Blood 0.54 mg/dL (0.60-1.20); Globulin, Blood 3.4 g/dL (2.2-4.0); Potassium, Blood 3.4 mmol/L (3.5-5.5); Total Protein, Blood 6.4 g/dL (6.4-8.2)
--- NOTE | 2024-05-25 09:54 | NUR ---
CALLED DR FOWLER [phone] TO NOTIFY HER THAT NOC RN REPORTED PT STATED SOB AND FEELING FLUID LONG. IVF STOPPED 05/24. ORDERED IVF TO BE STOPPED
[2024-05-25] MEDS ORDERED: Lactated Ringer's 1,000 ML IV SCH (13:05)
--- NOTE | 2024-05-25 13:14 | NUR ---
1310 PT TAKEN BY WHEELCHAIR FOR PRESURG PREP. PT VOIDED IN URINAL BEFORE GOING. HAS BEEN NPO SINCE MIDNIGHT.
--- NOTE | 2024-05-25 13:23 | NUR ---
PT INTO SDS VIA W/C FOR EGD W/ PEG PLACEMENT. Patient confirms NPO status and agrees with scheduled surgery. History, Chart, Medications and Allergies reviewed before start of procedure.Pre-Op teaching done. Pt verbalizes understanding.
--- NOTE | 2024-05-25 14:00 | NUR ---
PT HAS SOB AND TACHYPNEA, DOES NOT TOLERATE LAYING FLAT. 96% ON RA. LUNGS W/O NO AUDIBLE BREATH SOUNDS THROUGHT BUT NO WHEEZES OR CRACKLES. DUONEB INH GIVEN. PT STATES HE NOW FEELS LIKE HE IS BREATHING GOOD HE USUALLY DOES
[2024-05-25] MEDS ORDERED: CeFAZolin Sodium 2,000 MG in NS 100 ML IV SCH (14:05)
[2024-05-25] MEDS ORDERED: Lidocaine HCl 4% 5 ML SDA ONE (14:07)
[2024-05-25] MEDS ORDERED: propofoL 20 ML IV ONE (14:13)
--- NOTE | 2024-05-25 14:18 | NUR ---
05/25/24 1418 Victoria Bain History, Chart, Medications and Allergies reviewed before start of procedure.MONITOR INTACT WITH CONTINUOUS PULSE OXIMETRY, CONTINUOUS END TITAL CO2, AND INTERMITTENT BLOOD PRESSURE.3-LEAD EKG REVIEWED WITH PHYSICIAN PRIOR TO START OF PROCEDURE.O2 VIA POM INTACT THROUGHOUT SEDATION/PROCEDURE.Bite Block Placed.DR. CERDA PROVIDING MAC. SEE ANESTHESIA RECORD.
[2024-05-25] MEDS ORDERED: Ketorolac Tromethamine 30mg Vial IV ONE (15:15)
[2024-05-25] MEDS ORDERED: Morphine Sulfate 10 MG/ML 1MLSYR IV ONE (15:15)
[2024-05-25] MEDS ORDERED: TraMADol HCl 50 MG Tab PT PRN (15:15)
--- NOTE | 2024-05-25 15:48 | NUR ---
PT ARRIVED BACK FROM PEG PLACEMENT PROCEDURE AT 1500- A/O X4. BOWEL TONES ACTIVE ALL QUAD. DENIES NAUSEA. STATES PAIN IN ABD 7/[address]ED DR FOWLER FOR ORDERS. DR CASTLE SPOKE TO FAMILY IN THE ROOM BEFORE PT ARRIVED BACK. SPOKE TO RN AND STATED TUBE WOULD BE OK TO USE AFTER 6 HRS.
[2024-05-25] MEDS ORDERED: Bisacodyl 10 MG Supp PR PRN (18:20)
[2024-05-25] MEDS ORDERED: Docusate Sodium 100 MG UDC PT PRN (18:20)
[2024-05-25] MEDS ORDERED: Magnesium Hydroxide Conc 10 ML UDC PT PRN (18:20)
--- NOTE | 2024-05-25 20:46 | NUR ---
SUMMARY- PT A/O X4, INDEPENDANT IN ROOM. PT HAD PEG PLACED PER DR CASTLE TODAY. RETURNED TO ROOM AT 1500, DRESSING INTACT. BOWEL TONES ACTIVE. PAIN CONTROLLED S/P PROCEDURE WITH MORPHINE 5MG AND TORODOL. PT STARTED BACK ON DYSPHAGIA DIET AND WILL START TRICKLE TUBE FEEDS STARTING TONIGHT. VSS. REPORTED TO NOC TREVON Hickman
[2024-05-26] VITALS (7 sets, daily range): BP systolic 98–138; BP diastolic 57–74
[2024-05-26 04:48] LABS: BASOPHILS ABSOLUTE AUTO 0.08 K/mm3 (0.00-0.23); BASOPHILS PERCENT AUTO 1 % (0-2); EOSINOPHILS ABSOLUTE AUTO 0.85 K/mm3 (0.00-0.68); EOSINOPHILS PERCENT AUTO 6 % (0-6); Hematocrit 42.5 % (37.0-53.0); Hemoglobin 14.1 g/dL (13.5-17.5); IMMATURE GRAN ABSOLUTE AUTO 0.04 K/mm3 (0.00-0.10); IMMATURE GRAN PERCENT AUTO 0 % (0-1); LYMPHOCYTES ABSOLUTE AUTO 1.58 K/mm3 (0.84-5.20); LYMPHOCYTES PERCENT AUTO 12 % (21-46); MONOCYTES ABSOLUTE AUTO 0.85 K/mm3 (0.16-1.47); MONOCYTES PERCENT AUTO 6 % (4-13); Mean Corpuscular HGB 29.3 pg (26.0-34.0); Mean Corpuscular HGB Conc 33.2 g/dL (31.5-36.5); Mean Corpuscular Volume 88 fL (80-100); Mean Platelet Volume 11.1 fL (9.1-12.4); NEUTROPHILS ABSOLUTE AUTO 9.89 K/mm3 (1.96-9.15); NEUTROPHILS PERCENT AUTO 74 % (41-73); Platelet Count 276 K/mm3 (150-400); RDW Coefficient Variation 14.3 % (11.7-14.2); Red Blood Cell Count 4.81 M/mm3 (4.30-5.90); White Blood Cell Count 13.29 K/mm3 (4.00-11.30)
[2024-05-26 05:45] LABS: Albumin, Blood 3.4 g/dL (3.4-5.0); Albumin/Globulin Ratio 0.9 (0.8-1.8); Bilirubin, Total 0.7 mg/dL (0.1-1.0); Bun/Creatinine Ratio 21.6 (12.0-20.0); Calcium, Blood 9.7 mg/dL (8.5-10.1); Creatinine, Blood 0.6 mg/dL (0.60-1.20); Globulin, Blood 3.8 g/dL (2.2-4.0); Magnesium, Blood 1.8 mg/dL (1.6-2.4); Phosphorus, Blood 3.3 mg/dL (2.5-4.9); Potassium, Blood 3.4 mmol/L (3.5-5.5); Total Protein, Blood 7.2 g/dL (6.4-8.2)
[2024-05-26] MEDS ORDERED: Thiamine HCl 100 MG Tab PT SCH (09:00)
--- NOTE | 2024-05-26 10:50 | NUR ---
NURSE NOTE: PT C/O OF SOB AND FEELING OF SOMETHING IN HIS THROAT. PULSE IRREGULAR READING FROM 30-120, SATTING AT 94%, RR 32/MIN. OTHER VS UNREMARKABLE. C/O OF FEELING ANXIOUS, DR. FOWLER NOTIFIED AND EKG ORDERED. FEEDING FLUSHED AND HELD. RT ALSO CAME AND DID A BREATHING TREATMENT WHICH INCREASED SATS TO ~98% AND AIDED BREATHING. EKG DONE W DOCTOR IN ROOM. IRREGULAR RHYTHM DISPLAYED BUT DOCTOR NOT TOO CONCERNED. DOCTOR ORDERED TELE MONITORING AND CONT PULSE OX. CONTINUING CARE.
--- NOTE | 2024-05-26 15:58 | NUR ---
NURSING NOTE: 1557: RN CALLED SON, YAW, TO INFORM ABOUT PT FALL AND SKIN TEARS PRESENT. PT PLACED BACK INTO BED, IN LOWEST POSITION, AND CALL LIGHT WITHIN REACH.
--- NOTE | 2024-05-26 17:03 | NUR ---
PT SUMMARY: PT AOX4, SOFT SLIGHTLY MUMBLED SPEECH BUT CAN COMMUNICATE. PILLS CRUSHED OR DISOLVED IN WATER AND FLUSHED INTO PEG TUBE WITH LUKEWARM WATER. 1050: PT HAD EPISODE OF SOB AND LOW HEART RATE PER PULSE OX, SEE NURSING NOTES. FEEDINGS THROUGH PEG TUBE PAUSED. PUT ON 2L O2 NC. EKG PERFORMED. TELE ORDERED. TELE HOOKED UP. PT HAD UNSUPERVISED FALL W SKIN TEARS. SEE DOCUMENTATION FOR DETAILS. IRREGULAR SINUS RHYTHM WITH PAC'S AND PVC'S PER DIRECTOR AUDIENCE MARKETING. BED IN LOWEST POSITION, BED RAILS UP, CALL LIGHT IN REACH. ON CONT PULSE OX AND FALL PRECAUTIONS POST UNSUPERVISED FALLS. PT RESTING, CONTINUING CARE.
--- NOTE | 2024-05-26 18:04 | NUR ---
THIS ASSOCIATE PROGRAM MANAGER HAS REVEIWED AND AGREES WITH ALL NOTES AND ASSESSMENTS BY TREVON SOLORZANO.
[2024-05-27 03:02] VITALS: BP 121/59
[2024-05-27 04:46] LABS: Hematocrit 39.7 % (37.0-53.0); Hemoglobin 13.1 g/dL (13.5-17.5); Mean Corpuscular HGB 28.8 pg (26.0-34.0); Mean Corpuscular Volume 87 fL (80-100); Mean Platelet Volume 11.2 fL (9.1-12.4); Platelet Count 248 K/mm3 (150-400); RDW Coefficient Variation 14.2 % (11.7-14.2); RDW Standard Deviation 45.3 fL (35.1-46.3); Red Blood Cell Count 4.55 M/mm3 (4.30-5.90); White Blood Cell Count 8.27 K/mm3 (4.00-11.30)
[2024-05-27 05:15] LABS: Bun/Creatinine Ratio 28.3 (12.0-20.0); Calcium, Blood 9.2 mg/dL (8.5-10.1); Creatinine, Blood 0.57 mg/dL (0.60-1.20); Potassium, Blood 3.3 mmol/L (3.5-5.5)
[2024-05-27 07:39] VITALS: BP 119/61
[2024-05-27] MEDS ORDERED: Potassium Chloride 20 MEQ/15 ML UDC PO ONE ×2 (07:45→10:10)
[2024-05-27 15:56] VITALS: BP 128/63
--- NOTE | 2024-05-27 16:52 | NUR ---
SHIFT SUMMARY: PT AOX4 AND TOLERATING TUBE FEEDINGS MORE. NO CARDIAC EPISODES. TELE AND PULSE OX D/C BY DOCTOR. PT AMBULATES TO RESTROOM WITH STANDBY ASSIST AND CANE. COMPLAINED OF DISCOMFORT IN BED, FOAM MATTRESS PAD AND LINEN CHANGE DONE AND COMFORT IMPROVED. TUBE FEEDINGS BUMPED TO 20ML/HR @ 1611. PT RESTING IN BED, BED IN LOWEST POSITION, CALL LIGHT IN REACH. CONTINUING CARE.
[2024-05-27 19:59] VITALS: BP 129/67
[2024-05-28 04:28] VITALS: BP 107/60
[2024-05-28 04:58] LABS: Hematocrit 41.4 % (37.0-53.0); Hemoglobin 13.5 g/dL (13.5-17.5)
[2024-05-28 05:19] LABS: Bun/Creatinine Ratio 30.6 (12.0-20.0); Calcium, Blood 9.5 mg/dL (8.5-10.1); Creatinine, Blood 0.52 mg/dL (0.60-1.20); Potassium, Blood 3.7 mmol/L (3.5-5.5)
[2024-05-28 07:33] VITALS: BP 131/68
[2024-05-28 15:24] VITALS: BP 124/63
[2024-05-28 19:15] VITALS: BP 129/75
--- NOTE | 2024-05-28 19:21 | NUR ---
VSS, A-Ox4, denies SOB, denies any pain, ambulates with SB assist and cane, on RA. Lung diminished, heart regular, bowel sounds normative, pt on tube feeding 1.5 Jevity at 25mL/hr (goal 35mL/hr) tolerating well, PEG-tube C/D/I dressing change, RUE dressings changed, non-adherent, exdry, kerlex, kyler-wrap, new dressings C/D/I. Pt on pureed diet tolerating well, can make needs known, call solorio in hand, bed in lowest position.
[2024-05-28 22:20] LABS: OVA AND PARASITE,FECAL INTERP Negative (Negative)
[2024-05-29 03:28] VITALS: BP 92/51
[2024-05-29 07:42] VITALS: BP 120/73
[2024-05-29 14:37] VITALS: BP 128/70
--- NOTE | 2024-05-29 15:33 | NUR ---
Haider reports a great deal of frustration with continuous tube feedings. "I am tied to this damn machine. I can't even go to the bathroom with out this machine". (kangaroo pump) Haider's goal is to go home as soon as possible. He has spent a significant amount of time in bed during this stay, which is far from his baseline and preferred amount of daily activity. This RN worked with the patient and physician to create an individualized meal/tube feed plan that works best for the patient's physical and mental health along with his active lifestyle. Current Weight: 63 kg Calories needed: 35-40 kcal/kg Estimated daily caloric needs are: 63 kg 35 kcal/kg = 2,205 kcal (lower end) 63 kg 40 kcal/kg = 2,520 kcal (upper end) Estimated need of 2,205-2,520 kcal/day. Estimated protein needed: 1.5 g protein/kg Estimated daily prontein need 63 kg 1.5 g/kg = 94.5 g protein/day Oral intake: pt is currently eating 1/2 - 1 meal twice a day (equivalent to less than 2 full meals). Estimate his oral caloric and protein intake is 600-900 kcal and 20-30 g protein daily. Estimated caloric/protein intake based on 1 meal contributes about 600 kcal and 20 g protein (this can vary depending on meal composition). Therefore, his oral intake contributes approximately: 600 kcal/day 20 g protein/day Based on calculations from dieticians note on 05/27/24. Calories needed from tube feeding would be: Lower end: 2,205 kcal - 600 kcal = 1,605 kcal Upper end: 2,520 kcal - 600 kcal = 1,920 kcal Protein needed from tube feedin.5 g - 20 g = 74.5 g of protein from tube feeding A standard high-calorie, high-protein formula might provide around 1.5 kcal/mL and 63 g of protein per 1,000 mL. To meet the patients needs: Caloric goal: For 1,605-1,920 kcal, he would need 1,070-1,280 mL of a 1.5 kcal/mL formula. Protein goal: For 74.5 g protein, he would need approximately 1,180 mL of a formula providing 63 g protein/1,000 mL. A tube feeding regimen of 1,200 mL/day of a high-calorie, high-protein formula (1.5 kcal/mL) should meet both his calorie (1,800 kcal) and protein needs (approximately 75 g). Recommendation: Breakfast: PO + 1 can of Jevity 1.5 Snack: 1.5 cans of Jevity 1.5 Lunch: 1.5 cans of Jevity 1.5 Dinner: PO Snack: 1-1.5 cans of Jevity 1.5 Minimum of 1.5L water daily PC to remain available as needed for support.
--- NOTE | 2024-05-29 20:00 | NUR ---
SHIFT SUMMARY: PT A/O X4. PLEASANT AND COOEPRATIVE WITH CARE. LONG DISCUSSION THIS SHIFT BETWEEN HOSPITALIST, PALLIATIVE, AND ANIMAL HOSPITAL OFFICE SUPERVISOR REGARDING PLAN OF CARE FOR FEEDINGS WITHIN AND OUTSIDE OF HOSPITAL FOR DISCHARGE. PLAN AT THIS TIME FOR ONE CARTON 1.5 JEVITY HIGH CALORIE QID @ 0800, 1200, 1600, AND 2000 EVENTUALLY INCREASING TO 1 CARTON @ 0800 AND 2000 AND 2 CARTONS @ 1200 AND 1600. PT HOPEFUL TO D/C TOMORROW. SB ASSIST c CANE TO RESTROOM. CALL LIGHT IN REACH. BED IN LOWEST POSITION.
[2024-05-29 20:12] VITALS: BP 152/97
--- NOTE | 2024-05-29 21:06 | NUR ---
PATIENT RECEIVED JEVITY 1.5 CHARITY BOLUS OF 1 8 FL OZ CONTAINER/
[2024-05-30 03:57] VITALS: BP 122/80
--- NOTE | 2024-05-30 05:45 | NUR ---
SHIFT SUMMARY. PATIENT IS A&O X4. PATIENT IS ABLE TO MAKE HIS NEEDS KNOWN. PATIENT IS A 1P SBA c CANE TO THE BATHROOM. PATIENT USING THE URINAL AT TIMES TONIGHT INDEPENDENTLY AT BEDSIDE. PATIENT IS HOPEFUL TO DISCHARGE TODAY. PATIENT ABLE TO TOLERATE I CARTON OF 1.5 JEVITY BOLUS. PATIENT HAS SKIN TEARS TO RIGHT ARM-PATIENT REFUSED TO HAVE CHANGED THIS SHIFT AND WOULD LIKE TO DO IT "LATER IN THE MORNING"-WILL RELAY TO DAYSHIFT. NO ACUTE CHANGES NOTED OVER NIGHT. BED IS LOCKED IN THE LOWEST POSITION WITH CALL LIGHT IN REACH. CARE IS ONGOING.
[2024-05-30 06:01] LABS: Bun/Creatinine Ratio 35.6 (12.0-20.0); Calcium, Blood 9.1 mg/dL (8.5-10.1); Creatinine, Blood 0.53 mg/dL (0.60-1.20); Magnesium, Blood 2.1 mg/dL (1.6-2.4); Potassium, Blood 3.8 mmol/L (3.5-5.5)
[2024-05-30 07:33] VITALS: BP 126/70
--- NOTE | 2024-05-30 16:41 | NUR ---
PT DISCHARGED 1600 WITH DC INSTRUCTIONS. PT ABLE TO TOLERATE BREADFAST INCLUDING 100% OF SUPPLEMENT ON TRAY ORDERED PER DIETARY. PT NOT HUNGRY FOR LUNCH, AGREED TO HAVE JEVITY 1.5 HIGH CHARITY ADMIN WITH RN INSTRUCTION AND DAUGHTER DEMONSTRATION. PT ENCOURAGED TO EAT MEALS AND TO ADMIN JEVITY 1.5 NEEDED FOR ADDITIONAL CALORIES TO TOTAL 4-6 CANS OF JEVITY DAILY. MACRINA PALL. OFFERED EDUCATION IN REGUARDS TO CALORIE INTAKE AND ORAL INTAKE AND USE OF PEG. EULALIA WITH DIETARY OFFERED SUGGESTIONS IN RELATIONT TO DIETARY. FAMILY GIVEN ENOUGH JEVITY 1.5 TO LAST UNTIL VA EVAL TUESDAY. DIETARY OFFERED INSTRUCTION THAT ENSURE MAY BE TAKEN ORALLY FOR ADDITIONAL CALORIES. PT INSTRUCTED TO WEIGH HIMSELF TO ENSURE PROPER WEIGHT GAIN AND HH/VA FOLLOW UP TO ENSURE HE MEETS HIS GOAL OF WEIGHT GAIN. SKIN TEAR TO RF, DRESSING CHANGED WITH STERI STRIP, VAS GAUZE, NON ADHERENT GAUZE AND KERLEX. INSTRUCTED TO CHANGE DAILY AND PRN SOILING.
== END 2024-05-30 16:25 | disposition home health service (06) | DRG 56 ==
LOC: ER 11:43 → MEDS 17:04
PROVIDERS: Emergency Medicine; Hospitalist; Internal Medicine; Surgery; ADMIT Internal Medicine
PROC: 0DB78ZX Excision of Stomach, Pylorus, Via Natural or Artificial Opening Endoscopic, Diagnostic (ICD-10-PCS; principal; 2024-05-23 12:30)
PROC: 0DH63UZ Insertion of Feeding Device into Stomach, Percutaneous Approach (ICD-10-PCS; 2024-05-25)
DX: G12.21 Amyotrophic lateral sclerosis (principal); E43 Unspecified severe protein-calorie malnutrition; I50.22 Chronic systolic (congestive) heart failure; R62.7 Adult failure to thrive; I73.9 Peripheral vascular disease, unspecified; J44.9 Chronic obstructive pulmonary disease, unspecified; N40.0 Benign prostatic hyperplasia without lower urinary tract symptoms; E78.00 Pure hypercholesterolemia, unspecified; R13.12 Dysphagia, oropharyngeal phase; K29.70 Gastritis, unspecified, without bleeding; I11.0 Hypertensive heart disease with heart failure; Z86.73 Personal history of transient ischemic attack (TIA), and cerebral infarction without residual deficits; Z68.21 Body mass index [BMI] 21.0-21.9, adult; Z88.8 Allergy status to other drugs, medicaments and biological substances; Z88.1 Allergy status to other antibiotic agents; Z79.01 Long term (current) use of anticoagulants; Z79.899 Other long term (current) drug therapy; Z98.890 Other specified postprocedural states; Z87.891 Personal history of nicotine dependence; Z79.51 Long term (current) use of inhaled steroids; Z95.828 Presence of other vascular implants and grafts
CPT/HCPCS: 36415; 71045; 71046; 71250; 74176; 74230; 80048; 80053; 81003; 82550; 82607; 82746; 83735; 84100; 84443; 84484; 85014; 85018; 85025; 85027; 86038; 87177; 87209; 88305; 88342; 92526; 92610; 92611; 93005; 93010; 94640; 94664; 94760; 94762; 96372; 97110; 97116; 97162; 97530; 99285-25; A9270; C1769; G0378; J1644; J1885; J2001; J2270; J2704; J7030; J7120